=== PATIENT | female | born 1985 | race Caucasian/White ===

== ENCOUNTER 2022-05-20 08:26 | Inpatient (IN) | payer OTHER, SELFPAY ==
[2022-05-20] VITALS (19 sets, daily range): BP systolic 81–105; BP diastolic 32–70; PULSE 33–61; RESP 12–16; TEMP 34.8–36.2; O2SAT 98–100; BMI 20.3; BMI 22.8
--- NOTE | 2022-05-20 08:38 | ECG_ITS ---
Test Reason : od Blood Pressure : / mmHG Vent. Rate : 038 BPM Atrial Rate : 038 BPM P-R Int : 176 ms QRS Dur : 082 ms QT Int : 556 ms P-R-T Axes : 058 044 050 degrees QTc Int : 442 ms Marked sinus bradycardia Abnormal ECG No previous ECGs available Referred By: Kristine Bernard Electronically Signed By:JOSIE BLUM
--- NOTE | 2022-05-20 08:42 | ED_ITS ---
HPI - Overdose General Chief Complaint: Overdose Stated Complaint: ? OD ,PULSE 40 PER EMS Time Seen by Provider: 05/20/22 08:38 Source: patient and EMS Mode of arrival: EMS Limitations: no limitations History of Present Illness HPI Narrative: 36-year-old female came in by ambulance for evaluation of overdosed, patient take her prescribed medication of risperidone 0.5 mg tablet, clonidine 0.1 mg tablet, hydroxyzine 25 mg tablet, lamotrigine 25 mg tablet all the bottles are empty patient is guessing about 20 tablets of each patient talked to the medicine at 17:00 last night (over 15 hours ago), patient admitted she felt depressed and feeling sad for losing her fiance 5 months ago. Patient feel nauseous otherwise no chest pain, no abdominal pain. Patient also feels tired and lethargic. Patient found to be bradycardiac. Was placed on 3 L of oxygen by EMS. Related Data Allergies Allergy/AdvReac Type Severity Reaction Status Date / Time No Known Allergies Allergy Unverified 05/27/20 19:49 Review of Systems Review of Systems: All other systems are reviewed and are negative Constitutional: Reports as per HPI and Reports no additional constitutional complaints Eyes: Reports as per HPI and Reports no additional eye complaints Reports system reviewed and no additional complaints, except as documented Cardiovascular: Reports as per HPI and Reports no additional cardiovascular complaints Respiratory: Reports as per HPI and Reports no additional respiratory complaints Gastrointestinal: Reports as per HPI and Reports no additional gastrointestinal complaints Genitourinary: Reports no additional female genitourinary complaints Musculoskeletal: Reports no additional musculoskeletal complaints Skin/Breast: Reports system reviewed and no additional complaints, except as docu Psychiatric: Reports no additional psychiatric complaints Endocrine: Reports no additional endocrine complaints Hematologic/Lymphatic: Reports no additional hematologic/lymphatic complaints Allergic/Immunologic: Reports no additional allergic/immunologic complaints Reports system reviewed and no additional complaints, except as documented and Reports Abnormal speech present FORMERLY [facility], [facility]1983 Social History Social History Alcohol intake: never Patient Tobacco Use Status: Current everyday Tobacco user Smoked in Last 30 Days: Yes Use of substances other than those prescribed or required for medical reasons: No Advance Directives: Yes Advance Directives Information Provided: Yes Advance Directives on File: No Patient : No Physical Exam Vital Signs: Vital Signs: Last Vital Signs Temp 94.6 F L 05/20/22 13:42 Pulse 44 L 05/20/22 14:29 Resp 16 05/20/22 14:29 BP 95/57 L 05/20/22 14:29 Pulse Ox 99 05/20/22 14:29 O2 Del Method 05/20/22 14:29 BMI result Body Mass Index 20.3 Vital signs have been reviewed as appeared to be correct. Blood pressure normal. Heart rate normal. Respiration rate normal. Temperature normal. Oxygen saturation normal. Appearance: Alert. Oriented X3. No acute distress. Head: Normal external exam. Normocephalic. Atraumatic. No Brandt signs noted. No raccoon eyes noted Eyes: PERRLA. EOMI. Conjunctiva and sclera normal. Eyelids normal. ENT: TM's Normal. Pharynx normal. Uvula midline. Moist mucous membranes. No trismus noted. No drooling noted. No muffled voice noted. Neck: Normal inspection. Neck supple. FROM. No adenopathy. Thyroid Normal. No meningeal signs. No neck mass noted. CVS: Normal heart rate and rhythm. Heart sound normal. No murmurs noted. Pulses normal throughout. Respiratory: No respiratory distress. Painless inspiration. Breath sounds normal. No wheezes/rales/rhonchi noted. Chest nontender. No accessory muscle usage noted or decreased air movement noted. Abdomen: Soft and nontender. Bowel sounds normal in all 4 quadrants. No distention noted. No organomegaly noted. No visible injury noted. Back: No CVA tenderness. Full range of motion noted. Skin: Skin warm and dry. Normal skin color. Normal skin turgor. No rashes/lesions/lacerations noted. Extremities: No lower extremity edema. Extremities exhibit normal range of motion. Extremities nontender. Neuro: Oriented X 3. Cranial nerve exam: II-XII are grossly intact No motor deficit. No sensory deficit. Reflexes normal. Patient Orientation: Person, Place, Time and Situation Level of Consciousness: Awake, Appropriate and Alert Patient Behavior: Appropriate, Guarded, Cooperative and Anxious Mood Description: Constricted, Blunted and Apprehensive Affect Description: Constricted, Blunted and Apprehensive Patient Cognition Impaired: No Ability to Follow Directions: Excellent Speech Pattern: Clear, Appropriate and Spontaneous Speech Memory Description: Intact, Immediate Intact and Short Term Intact Hallucinations: None Delusions: Not Present Thought Process: Intact Thought Content: positive for Intact, positive for Logical, presents of Suicidal Ideation but denies Homicidal Ideation. Depressive Symptoms: Not present Judgement: poor Judgement and Insight: Poor Course Course Course Narrative: 36-year-old female came in after overdosed on multiple of her medication risperidone 0.5 mg tablets, clonidine 0.1 mg tablet, hydroxyzine 25 mg tablet, lamotrigine 25 mg tablet of unknown amount, patient presented more than 12 hours after the ingestion, patient found to be hypotensive and bradycardic, consulting with poison Control recommended supportive treatment and 48 hours monitoring, case discussed with Dr. Cohen will be accepted to ICU. Reevaluation(s) Reevaluation #1: Patient received 3 L of normal saline slight improvement of blood pressure, heart rate is improving, patient remained awake, alert, oriented. MDM - Overdose Lab Data Attestation: I reviewed the patient's lab results. Result diagrams: 05/20/22 09:10 05/20/22 12:16 Labs: Lab Results 05/20/22 05/20/22 05/20/22 Range/Units 09:10 09:10 09:10 WBC 11.4 H (4.8-10.8) X10*3/uL RBC 4.14 L (4.20-5.50) X10*6/uL Hgb 13.0 (12.0-16.0) g/dl Hct 39.1 (37.0-47.0) % MCV 94.4 (80.0-98.0) fL MCH 31.4 (27.0-33.0) pg MCHC 33.2 (31.0-35.0) g/dl RDW 12.2 (11.0-16.0) % Plt Count 234 (160-400) X10*3/uL MPV 11.4 (9.4-12.3) fL Immature Gran % (Auto) 0.4 (0.0-0.4) % Neut % (Auto) 80.7 H (45-73) % Lymph % (Auto) 12.2 L (20-40) % Clayton % (Auto) 5.6 (2-11) % Eos % (Auto) 0.6 (0-4) % Baso % (Auto) 0.5 (0-2) % Lymph # (Auto) 1.4 (1.2-4.9) X10*3/uL Clayton # (Auto) 0.6 (0.1-1.2) X10*3/uL Eos # (Auto) 0.1 (0.0-0.4) X10*3/uL Baso # (Auto) 0.1 (0.0-0.2) X10*3/uL Abs Immat Gran (auto) 0.05 H (0.00-0.03) X10*3/uL Absolute Neuts (auto) 9.2 H (2.0-8.3) x10*3/uL Absolute Nucleated RBC 0.000 (0.0-0.012) X10*3/uL Nucleated RBC % (auto) 0.0 (0.0-0.2) /100WBC Sodium 141 (135-145) mmol/L Potassium 4.3 (3.3-5.1) mmol/L Chloride 104 (96-108) mmol/L Carbon Dioxide 28 (22-29) mmol/L Anion Gap 13 (12-20) BUN 9 (9-16) mg/dL Creatinine 0.92 (0.5-1.4) mg/dL Estim Creat Clear Calc 68.3 Estimated GFR > 60 Random Glucose 136 H (60-115) mg/dL Calcium 9.7 (8.4-10.2) mg/dL Magnesium 2.2 (1.6-2.6) mg/dL Total Bilirubin 0.5 (0.0-1.0) mg/dL Direct Bilirubin 0.2 (0.0-0.5) mg/dL AST 19 (5-31) U/L ALT 21 (0-31) U/L Alkaline Phosphatase 44 (39-117) U/L Troponin I High Sens < 3.5 (<3.5-17.0) ng/L Total Protein 6.6 (6.5-8.0) g/dL Albumin 4.0 (3.5-5.0) g/dL Lipase 7 L (8-78) U/L Salicylates < 5.0 L (15-30) mg/dL Acetaminophen < 1 (<30) mcg/mL COVID-19 ([facility]) (Negative) COVID-19 Clin Com 05/20/22 05/20/2222 Range/Units 09:10 09:51 12:16 WBC (4.8-10.8) X10*3/uL RBC (4.20-5.50) X10*6/uL Hgb (12.0-16.0) g/dl Hct (37.0-47.0) % MCV (80.0-98.0) fL MCH (27.0-33.0) pg MCHC (31.0-35.0) g/dl RDW (11.0-16.0) % Plt Count (160-400) X10*3/uL MPV (9.4-12.3) fL Immature Gran % (Auto) (0.0-0.4) % Neut % (Auto) (45-73) % Lymph % (Auto) (20-40) % Clayton % (Auto) (2-11) % Eos % (Auto) (0-4) % Baso % (Auto) (0-2) % Lymph # (Auto) (1.2-4.9) X10*3/uL Clayton # (Auto) (0.1-1.2) X10*3/uL Eos # (Auto) (0.0-0.4) X10*3/uL Baso # (Auto) (0.0-0.2) X10*3/uL Abs Immat Gran (auto) (0.00-0.03) X10*3/uL Absolute Neuts (auto) (2.0-8.3) x10*3/uL Absolute Nucleated RBC (0.0-0.012) X10*3/uL Nucleated RBC % (auto) (0.0-0.2) /100WBC Sodium 143 (135-145) mmol/L Potassium 4.7 (3.3-5.1) mmol/L Chloride 111 H (96-108) mmol/L Carbon Dioxide 24 (22-29) mmol/L Anion Gap 13 (12-20) BUN 8 L (9-16) mg/dL Creatinine 0.77 (0.5-1.4) mg/dL Estim Creat Clear Calc 81.5 Estimated GFR > 60 Random Glucose 116 H (60-115) mg/dL Calcium 8.7 D 8.7 (8.4-10.2) mg/dL Magnesium (1.6-2.6) mg/dL Total Bilirubin (0.0-1.0) mg/dL Direct Bilirubin (0.0-0.5) mg/dL AST (5-31) U/L ALT (0-31) U/L Alkaline Phosphatase (39-117) U/L Troponin I High Sens (<3.5-17.0) ng/L Total Protein (6.5-8.0) g/dL Albumin (3.5-5.0) g/dL Lipase (8-78) U/L Salicylates (15-30) mg/dL Acetaminophen (<30) mcg/mL COVID-19 ([facility]A) Negative (Negative) COVID-19 Clin Com See Note ECG Data Attestation: I personally reviewed and interpreted this ECG as follows: Interpretation: Sinus bradycardia at 36 beats per minute, normal intervals, no ST-T changes. Critical Care Time Critical Care Time Critical Care Time: Yes Total Critical Care Time: 60 Attestation: I spent 60 minutes providing critical care service to the patient, this including time spent at the bedside to evaluate the patient, reassess the patient, monitoring vital signs, review labs, and radiographic studies, counseling the patient/family, discussing the case with consultants, disposition the patient.
[2022-05-20] MEDS: 0.9 % Sodium Chloride 1,000 ML 999 ML IV ×3 (09:13→12:46)
[2022-05-20 09:15] LABS: MANUAL DIFF FLAG NO
[2022-05-20 09:16] LABS: Basophils Absolute Auto 0.1 X10*3/uL (0.0-0.2); Basophils Percent Auto 0.5 % (0-2); Eosinophils Absolute Auto 0.1 X10*3/uL (0.0-0.4); Eosinophils Percent Auto 0.6 % (0-4); Hematocrit 39.1 % (37.0-47.0); Imm Gran Abs Auto 0.05 X10*3/uL (0.00-0.03); Imm Gran Pct Auto 0.4 % (0.0-0.4); Lymphocytes Absolute Auto 1.4 X10*3/uL (1.2-4.9); Lymphocytes Percent Auto 12.2 % (20-40); Mean Corpuscular HGB Conc 33.2 g/dl (31.0-35.0); Mean Corpuscular Hemoglobin 31.4 pg (27.0-33.0); Mean Corpuscular Volume 94.4 fL (80.0-98.0); Mean Platelet Volume 11.4 fL (9.4-12.3); Monocytes Absolute Auto 0.6 X10*3/uL (0.1-1.2); Monocytes Percent Auto 5.6 % (2-11); Neutrophils Absolute Auto 9.2 x10*3/uL (2.0-8.3); Neutrophils Percent Auto 80.7 % (45-73); Platelet Count 234 X10*3/uL (160-400); Red Blood Count 4.14 X10*6/uL (4.20-5.50); Red Cell Distribution Width 12.2 % (11.0-16.0); White Blood Count 11.4 X10*3/uL (4.8-10.8)
[2022-05-20 09:33] LABS: COVID-19 Test Negative (Negative); IDNOW Serial# 16C4AD1C
[2022-05-20 09:46] LABS: Troponin-I High Sensitivity < 3.5 ng/L (<3.5-17.0)
[2022-05-20 09:47] LABS: Alanine Aminotransferase 21 U/L (0-31); Alkaline Phosphatase 44 U/L (39-117); Anion Gap 13 (12-20); Aspartate Amino Transferase 19 U/L (5-31); Bilirubin Direct 0.2 mg/dL (0.0-0.5); Bilirubin Total 0.5 mg/dL (0.0-1.0); Blood Urea Nitrogen 9 mg/dL (9-16); Calcium 9.7 mg/dL (8.4-10.2); Carbon Dioxide 28 mmol/L (22-29); Chloride 104 mmol/L (96-108); Creatinine Clr Calc Pharmacy 68.3; Estimated Glomerular Filt Rate > 60; Glucose Random 136 mg/dL (60-115); Lipase 7 U/L (8-78); Magnesium 2.2 mg/dL (1.6-2.6); Potassium 4.3 mmol/L (3.3-5.1); Sodium 141 mmol/L (135-145); Total Protein 6.6 g/dL (6.5-8.0)
[2022-05-20 09:55] LABS: Acetaminophen LAB < 1 mcg/mL (<30); Salicylate < 5.0 mg/dL (15-30)
[2022-05-20 10:32] LABS: Calcium 8.7 mg/dL (8.4-10.2)
--- NOTE | 2022-05-20 11:44 | MHC.CARE ---
Please consult CARE Team when Pt is medically cleared for crisis assessment.
--- NOTE | 2022-05-20 12:00 | ECG_ITS ---
Test Reason : repeat Blood Pressure : / mmHG Vent. Rate : 036 BPM Atrial Rate : 036 BPM P-R Int : 178 ms QRS Dur : 082 ms QT Int : 608 ms P-R-T Axes : 055 035 057 degrees QTc Int : 470 ms Marked sinus bradycardia Low voltage QRS Abnormal ECG When compared with ECG of 20-MAY-2022 08:46, No significant change was found Referred By: Kristine Bernard Electronically Signed By:JOSIE BLUM
[2022-05-20 12:45] LABS: Anion Gap 13 (12-20); Blood Urea Nitrogen 8 mg/dL (9-16); Calcium 8.7 mg/dL (8.4-10.2); Carbon Dioxide 24 mmol/L (22-29); Chloride 111 mmol/L (96-108); Creatinine Clr Calc Pharmacy 81.5; Estimated Glomerular Filt Rate > 60; Glucose Random 116 mg/dL (60-115); Potassium 4.7 mmol/L (3.3-5.1); Sodium 143 mmol/L (135-145)
--- NOTE | 2022-05-20 13:59 | P.HPCC_ITS ---
History of Present Illness Date of Service: 05/20/22 Chief Complaint: Suicide attempt 36 year old lady presented via ambulance complaining of attempted suicide attempt by an overdose of her prescription medications including including, lamotrigine, and risperidone approximately 18 hours before being evaluated at [facility] emergency room. On ER evaluation alert and oriented, mild hypotension despite initial IV fluid support, S symptomatic bradycardia, normal EKG intervals. Patient admitted to intensive care unit for close monitoring. Review of Systems Constitutional: Constitutional: Denies daytime sleepiness, Denies excessive sweating, Denies fatigue, Denies fever(s), Denies lethargy, Denies malaise, Denies night sweats, Denies snoring and Denies weight loss Eyes: Eyes: Denies blurry vision and Denies itchy eyes ENT: Denies nasal congestion, Denies post nasal drip, Denies sinus pain, Denies sinus pressure and Denies other ( Thrush) Cardiovascular: Cardiovascular: Denies chest pain, Denies pedal edema, Denies dyspnea, Denies orthopnea and Denies paroxysmal nocturnal dyspnea Respiratory: Respiratory: Denies cough, Denies hemoptysis, Denies excessive phlegm production, Denies dyspnea, Denies snoring and Denies wheezing Gastrointestinal: Gastrointestinal: Denies abdominal pain and Denies heartburn Musculoskeletal: Musculoskeletal: Denies myalgias, Denies arthralgias and Denies joint swelling Integumentary/Breasts: Skin/Breast: Denies rash Neurologic: Denies memory loss and Denies seizure-like activity Psychiatric: Psychiatric: Denies abnormal sleep pattern, Denies anxiety and Denies memory loss Endocrine: Endocrine: Denies excessive sweating, Denies fatigue and Denies heat intolerance Hematologic/Lymphatic: Hematologic/Lymphatic: Denies easy bruising Allergic/Immunologic: Allergic/Immunologic: Denies itchy eyes, Denies seasonal rhinorrhea and Denies wheezing PMFSH Social History Social History Household Members: None Housing: Apartment Do you presently have visiting nurse or other home services: No Alcohol intake: never Patient Tobacco Use Status: Current everyday Tobacco user Tobacco use type: Cigarette Smoked in Last 30 Days: Yes Use of substances other than those prescribed or required for medical reasons: No Have you been hit, kicked, punched, or otherwise hurt by someone within the past year? If so, by whom?: No Do you feel safe in your current relationship?: No Current Relationship Is there a partner from a previous relationship who is making you feel unsafe now?: No Are you made to feel afraid or neglected: No Advance Directives: No Advance Directives Information Provided: Yes Advance Directives on File: No Healthcare Proxy: No Guardian: No Do you have thoughts of harming others: Vague Do you have a plan to hurt others: Vague Recently lost weight without trying: No Nutrition Risks: No Nutritional Risk Patient : No : No Poor oral hygiene: No Meds Allergies Allergy/AdvReac Type Severity Reaction Status Date / Time No Known Allergies Allergy Unverified 05/27/20 19:49 Active Medications: Current Medications Enoxaparin Sodium (Enoxaparin Sodium 40 Mg/0.4 Ml Syringe) 40 mg SUBCUT Q24H [facility] Lactated Ringer's (Lr) 1,000 mls @ 100 mls/hr IVCONT .Q10H [facility] Home Medications Medication Instructions Recorded Confirmed Last Taken Type clonidine HCl 0.1 mg tablet 0.1 mg PO DAILY 05/20/22 05/20/22 05/20/22 History lamotrigine 25 mg tablet 25 mg PO DAILY 05/20/22 05/20/22 05/20/22 History risperidone 0.5 mg tablet 0.5 mg PO DAILY 05/20/22 05/20/22 05/20/22 History Physical Exam Vital Signs: Vital Signs: Last Vital Signs Temp 94.6 F L 05/20/22 13:42 Pulse 35 L 05/20/22 13:42 Resp 14 05/20/22 13:42 BP 95/56 L 05/20/22 13:42 Pulse Ox 100 05/20/22 13:42 O2 Del Method 05/20/22 13:42 BMI result Body Mass Index 20.3 Const: General: no acute distress and alert Nutritional Appearance: not obese Orientation/consciousness: Other orientation findings ( oriented) HEENT: Head: Yes atraumatic Mouth: no other ( thrush) Throat: No postnasal drainage Eyes: General: appearance normal, both eyes and all related structures Sclerae: sclerae normal EOM: EOMs intact bilaterally Neck: Neck: Yes supple Lymphatic: no lymphadenopathy noted Resp: Effort & Inspection: normal respiratory effort and no use of accessory muscles Auscultation: clear to auscultation bilaterally Cardio: Rate: bradycardic Rhythm: regular rhythm Heart sounds: no gallops, no murmurs and no rubs GI: Palpation (GI): Soft to palpation and Other GI palpation findings present ( nontender) Skin: General skin exam: other ( warm) Rashes: no rashes Extrem: General: No clubbing, No cyanosis and No edema Results Labs CBC and Chem 7: 05/21/22 05:18 05/21/22 05:18 Labs: Laboratory Results - last 24 hr 05/20/22 05/20/22 05/20/22 09:10 09:10 09:10 MCV 94.4 MCH 31.4 MCHC 33.2 RDW 12.2 Plt Count 234 MPV 11.4 Immature Gran % (Auto) 0.4 Neut % (Auto) 80.7 H Lymph % (Auto) 12.2 L Noble % (Auto) 5.6 Eos % (Auto) 0.6 Baso % (Auto) 0.5 Lymph # (Auto) 1.4 Noble # (Auto) 0.6 Eos # (Auto) 0.1 Baso # (Auto) 0.1 Abs Immat Gran (auto) 0.05 H Absolute Neuts (auto) 9.2 H Absolute Nucleated RBC 0.000 Nucleated RBC % (auto) 0.0 Anion Gap 13 Estim Creat Clear Calc 68.3 Estimated GFR > 60 Random Glucose 136 H Calcium 9.7 Magnesium 2.2 Total Bilirubin 0.5 Direct Bilirubin 0.2 AST 19 ALT 21 Alkaline Phosphatase 44 Total Protein 6.6 Albumin 4.0 Lipase 7 L Salicylates < 5.0 L Acetaminophen < 1 COVID-19 ([facility]) Negative COVID-19 Clin Com See Note 05/20/22 05/20/22 09:51 12:16 MCV MCH MCHC RDW Plt Count MPV Immature Gran % (Auto) Neut % (Auto) Lymph % (Auto) Noble % (Auto) Eos % (Auto) Baso % (Auto) Lymph # (Auto) Noble # (Auto) Eos # (Auto) Baso # (Auto) Abs Immat Gran (auto) Absolute Neuts (auto) Absolute Nucleated RBC Nucleated RBC % (auto) Anion Gap 13 Estim Creat Clear Calc 81.5 Estimated GFR > 60 Random Glucose 116 H Calcium 8.7 D 8.7 Magnesium Total Bilirubin Direct Bilirubin AST ALT Alkaline Phosphatase Total Protein Albumin Lipase Salicylates Acetaminophen COVID-19 ([facility]) COVID-19 Clin Com Assessment and Plan (1) Overdose: Status: Acute (2) Bradycardia: Status: Acute Plan Assessment: 36-year-old lady admitted with hypertension and bradycardia secondary to intentional overdose with clonidine, Lamotrigine, and risperidone. Plan: Neuro: Mentation is normal Cardiac: Hypotension and bradycardia are secondary to intentional overdose. Continue supportive measures. Continue to monitor EKG intervals. Pulmonary: No acute issues. Renal: No acute issues. Endo: No acute issues. GI: No acute issues. ID: No acute issues Heme/Onc: No acute issues. Psych: Intentional overdose, psychiatry evaluation requested. Continue on one-to-one supervision. Miscellaneous: No acute issues. Prophylaxis: Lovenox Diet: Regular
[2022-05-20] MEDS: Enoxaparin Sodium 40 MG/0.4 ML SYRINGE SUBCUT (14:23)
[2022-05-20] MEDS: Lactated Ringers 1,000 ML 100 ML IVCONT ×2 (14:24→23:50)
--- NOTE | 2022-05-20 14:38 | PC.NURSE ---
poison control called to check in on patient. they recommend adding alcohol level for patients lab work. patient waiting to be admitted to ICU.
[2022-05-20 14:56] LABS: Ethanol < 10 mg/dL
--- NOTE | 2022-05-20 15:04 | PHA.MEDREC ---
Pharmacy Consult ? Medication Reconciliation Pharmacy has completed the medication reconciliation.
[2022-05-20 16:21] LABS: Appearance Urine Cloudy; Color Urine Yellow; Glucose Urine UA Negative (Negative); Leukocyte Esterase Urine Trace (Negative); Nitrite Urine Negative (Negative); Urine Blood Negative (Negative); Urine Ketones Negative (Negative); Urine Protein Negative (Neg-Trace)
[2022-05-20 16:22] LABS: UPreg QC Valid YES; Urine Pregnancy NEGATIVE (NEGATIVE)
[2022-05-20 16:26] LABS: Bacteria Urine 4+ (None Seen); Hyaline Casts Urine 0-2 /LPF (0-2); RBC Urine 0-2 /HPF (0-2); Squamous Epithelial Cell Urine 0-2 /HPF (0-2); WBC Urine 0-5 /HPF (0-5)
[2022-05-20 16:27] LABS: Amphetamine Screen Urine Not Detected (Not Detect); Barbiturates, Urine Not Detected (Not Detect); Benzodiazepines Screen Urine Not Detected (Not Detect); Cannabinoid Screen Urine Not Detected (Not Detect); Cocaine Screen Urine Not Detected (Not Detect); Fentanyl, urine POSITIVE (Not Detect); Opiate Screen Urine Not Detected (Not Detect); Phencyclidine Screen Urine Not Detected (Not Detect)
--- NOTE | 2022-05-20 18:21 | ECG_ITS ---
Test Reason : QTC CHECK PER POISON CONTROL Blood Pressure : / mmHG Vent. Rate : 036 BPM Atrial Rate : 036 BPM P-R Int : 168 ms QRS Dur : 082 ms QT Int : 560 ms P-R-T Axes : 050 022 062 degrees QTc Int : 433 ms Marked sinus bradycardia Low voltage QRS Nonspecific T wave abnormality Abnormal ECG When compared with ECG of 20-MAY-2022 11:54, No significant change was found Referred By: Guilherme Cohen Electronically Signed By:JOSIE BLUM
--- NOTE | 2022-05-20 18:37 | MHC.CARE ---
Care Team met with pt and pt is not medically cleared. Please consult care team for crisis assessment. Care Team is recommending Pt remain on Section 12 until assessment is complete. Case consult with YIFAN Callaway.
--- NOTE | 2022-05-20 18:56 | ECG_ITS ---
Test Reason : Poison control Blood Pressure : / mmHG Vent. Rate : 044 BPM Atrial Rate : 044 BPM P-R Int : 164 ms QRS Dur : 084 ms QT Int : 556 ms P-R-T Axes : 048 017 051 degrees QTc Int : 475 ms Marked sinus bradycardia with sinus arrhythmia Low voltage QRS Abnormal ECG When compared with ECG of 20-MAY-2022 18:23, No significant change was found Referred By: Yoko Newton Electronically Signed By:JOSIE BLUM
[2022-05-21] VITALS (19 sets, daily range): BP systolic 91–108; BP diastolic 51–76; PULSE 35–63; RESP 13–21; TEMP 36.5–36.9; O2SAT 97–100; BMI 24.7
--- NOTE | 2022-05-21 02:56 | ECG_ITS ---
Test Reason : Poison control Blood Pressure : / mmHG Vent. Rate : 037 BPM Atrial Rate : 037 BPM P-R Int : 154 ms QRS Dur : 086 ms QT Int : 516 ms P-R-T Axes : 052 005 040 degrees QTc Int : 405 ms Marked sinus bradycardia Low voltage QRS Nonspecific T wave abnormality Abnormal ECG When compared with ECG of 20-MAY-2022 23:13, No significant change was found Referred By: Yoko Newton Electronically Signed By:JOSIE BLUM
[2022-05-21 06:12] LABS: MANUAL DIFF FLAG NO
[2022-05-21 06:25] LABS: Basophils Percent Auto 0.6 % (0-2); Eosinophils Absolute Auto 0.1 X10*3/uL (0.0-0.4); Eosinophils Percent Auto 0.7 % (0-4); Hematocrit 34.2 % (37.0-47.0); Hemoglobin 11.4 g/dl (12.0-16.0); Imm Gran Abs Auto 0.03 X10*3/uL (0.00-0.03); Imm Gran Pct Auto 0.4 % (0.0-0.4); Lymphocytes Absolute Auto 1.9 X10*3/uL (1.2-4.9); Lymphocytes Percent Auto 27.8 % (20-40); Mean Corpuscular HGB Conc 33.3 g/dl (31.0-35.0); Mean Corpuscular Hemoglobin 32.1 pg (27.0-33.0); Mean Corpuscular Volume 96.3 fL (80.0-98.0); Mean Platelet Volume 12.8 fL (9.4-12.3); Monocytes Absolute Auto 0.5 X10*3/uL (0.1-1.2); Monocytes Percent Auto 6.7 % (2-11); Neutrophils Absolute Auto 4.5 x10*3/uL (2.0-8.3); Neutrophils Percent Auto 63.8 % (45-73); Platelet Count 218 X10*3/uL (160-400); Red Blood Count 3.55 X10*6/uL (4.20-5.50); Red Cell Distribution Width 12.3 % (11.0-16.0)
[2022-05-21 06:38] LABS: Alanine Aminotransferase 19 U/L (0-31); Albumin Level 3.6 g/dL (3.5-5.0); Alkaline Phosphatase 39 U/L (39-117); Anion Gap 12 (12-20); Aspartate Amino Transferase 15 U/L (5-31); Bilirubin Total 0.4 mg/dL (0.0-1.0); Blood Urea Nitrogen 9 mg/dL (9-16); Calcium 9.1 mg/dL (8.4-10.2); Carbon Dioxide 24 mmol/L (22-29); Chloride 109 mmol/L (96-108); Creatinine Clr Calc Pharmacy 76.9; Estimated Glomerular Filt Rate > 60; Glucose Random 102 mg/dL (60-115); Phosphorus 4.1 mg/dL (2.7-4.5); Potassium 4.3 mmol/L (3.3-5.1); Sodium 141 mmol/L (135-145); Total Protein 5.7 g/dL (6.5-8.0)
[2022-05-21] MEDS: Acetaminophen 325 MG TABLET 650 MG PO (08:31)
[2022-05-21] MEDS: Lactated Ringers 1,000 ML 100 ML IVCONT ×2 (08:32→18:26)
--- NOTE | 2022-05-21 09:43 | PM.CCPN ---
Subjective Subjective Date of Service: 05/21/22 Interval History: 36 year old lady presented via ambulance complaining of attempted suicide attempt by an overdose of her prescription medications including including, lamotrigine, and risperidone approximately 18 hours before being evaluated at the emergency room. On ER evaluation alert and oriented, mild hypotension despite initial IV fluid support, S symptomatic bradycardia, normal EKG intervals. Patient admitted to intensive care unit for close monitoring. No events overnight. Blood pressure improved, pulse remained around 40 beats per minute. Critical Care Time (minutes): 0 Physical Exam Vital Signs: Vital Signs: Last Vital Signs Temp 97.7 F 05/21/22 08:53 Pulse 40 L 05/21/22 09:00 Resp 16 05/21/22 09:00 BP 105/54 L 05/21/22 09:00 Pulse Ox 99 05/21/22 09:00 O2 Del Method 05/21/22 09:00 BMI result Body Mass Index 24.7 Const: General: no acute distress, alert and awake Eyes: Sclerae: sclerae normal EOM: EOMs intact bilaterally Neck: Neck: Yes no lymphadenopathy, Yes trachea midline and Yes supple Resp: Effort & Inspection: normal respiratory effort and no respiratory distress Auscultation: clear to auscultation bilaterally Cardio: Rate: bradycardic Rhythm: regular rhythm Heart sounds: no gallops, no murmurs and no rubs GI: Palpation (GI): Soft to palpation and Other GI palpation findings present ( Nontender) Auscultation: normal bowel sounds Extrem: General: Yes no pedal edema, No clubbing and No cyanosis Objective Data Labs CBC & Chem 7: 05/21/22 05:18 05/21/22 05:18 Labs: Laboratory Results - last 24 hr 05/20/22 05/20/22 05/20/22 09:10 09:10 09:51 WBC RBC Hgb Hct MCV MCH MCHC RDW Plt Count MPV Immature Gran % (Auto) Neut % (Auto) Lymph % (Auto) [place] % (Auto) Eos % (Auto) Baso % (Auto) Lymph # (Auto) [place] # (Auto) Eos # (Auto) Baso # (Auto) Abs Immat Gran (auto) Absolute Neuts (auto) Absolute Nucleated RBC Nucleated RBC % (auto) Sodium 141 Potassium 4.3 Chloride 104 Carbon Dioxide 28 Anion Gap 13 BUN 9 Creatinine 0.92 Estim Creat Clear Calc 68.3 Estimated GFR > 60 Random Glucose 136 H Calcium 9.7 8.7 D Phosphorus Magnesium 2.2 Total Bilirubin 0.5 Direct Bilirubin 0.2 AST 19 ALT 21 Alkaline Phosphatase 44 Troponin I High Sens < 3.5 Total Protein 6.6 Albumin 4.0 Lipase 7 L Urine Color Urine Appearance Urine pH Ur Specific [place] Urine Protein Urine Glucose (UA) Urine Ketones Urine Blood Urine Nitrite Ur Leukocyte Esterase Urine RBC Urine WBC Ur Squamous Epith Cells Urine Bacteria Hyaline Casts Urine Test Salicylates < 5.0 L Urine Opiates Screen Urine Fentanyl Screen Acetaminophen < 1 Ur Barbiturates Screen Ur Phencyclidine Scrn Ur Amphetamines Screen U Benzodiazepines Scrn Urine Cocaine Screen U Marijuana (THC) Screen Ethyl Alcohol 05/20/22 05/20/22 05/20/22 12:16 15:59 15:59 WBC RBC Hgb Hct MCV MCH MCHC RDW Plt Count MPV Immature Gran % (Auto) Neut % (Auto) Lymph % (Auto) [place] % (Auto) Eos % (Auto) Baso % (Auto) Lymph # (Auto) [place] # (Auto) Eos # (Auto) Baso # (Auto) Abs Immat Gran (auto) Absolute Neuts (auto) Absolute Nucleated RBC Nucleated RBC % (auto) Sodium 143 Potassium 4.7 Chloride 111 H Carbon Dioxide 24 Anion Gap 13 BUN 8 L Creatinine 0.77 Estim Creat Clear Calc 81.5 Estimated GFR > 60 Random Glucose 116 H Calcium 8.7 Phosphorus Magnesium Total Bilirubin Direct Bilirubin AST ALT Alkaline Phosphatase Troponin I High Sens Total Protein Albumin Lipase Urine Color Yellow Urine Appearance Cloudy Urine pH 6.0 Ur Specific [place] 1.010 Urine Protein Negative Urine Glucose (UA) Negative Urine Ketones Negative Urine Blood Negative Urine Nitrite Negative Ur Leukocyte Esterase Trace H Urine RBC 0-2 Urine WBC 0-5 Ur Squamous Epith Cells 0-2 Urine Bacteria 4+ Hyaline Casts 0-2 Urine Test Salicylates Urine Opiates Screen Not Detected Urine Fentanyl Screen POSITIVE H Acetaminophen Ur Barbiturates Screen Not Detected Ur Phencyclidine Scrn Not Detected Ur Amphetamines Screen Not Detected U Benzodiazepines Scrn Not Detected Urine Cocaine Screen Not Detected U Marijuana (THC) Screen Not Detected Ethyl Alcohol < 10 05/20/22 05/21/22 05/21/22 15:59 05:18 05:18 WBC 7.0 RBC 3.55 L Hgb 11.4 L Hct 34.2 L MCV 96.3 MCH 32.1 MCHC 33.3 RDW 12.3 Plt Count 218 MPV 12.8 H Immature Gran % (Auto) 0.4 Neut % (Auto) 63.8 Lymph % (Auto) 27.8 [place] % (Auto) 6.7 Eos % (Auto) 0.7 Baso % (Auto) 0.6 Lymph # (Auto) 1.9 [place] # (Auto) 0.5 Eos # (Auto) 0.1 Baso # (Auto) 0.0 Abs Immat Gran (auto) 0.03 Absolute Neuts (auto) 4.5 Absolute Nucleated RBC 0.000 Nucleated RBC % (auto) 0.0 Sodium 141 Potassium 4.3 Chloride 109 H Carbon Dioxide 24 Anion Gap 12 BUN 9 Creatinine 0.82 Estim Creat Clear Calc 76.9 Estimated GFR > 60 Random Glucose 102 Calcium 9.1 Phosphorus 4.1 Magnesium 2.0 Total Bilirubin 0.4 Direct Bilirubin AST 15 ALT 19 Alkaline Phosphatase 39 Troponin I High Sens Total Protein 5.7 L Albumin 3.6 Lipase Urine Color Urine Appearance Urine pH Ur Specific [place] Urine Protein Urine Glucose (UA) Urine Ketones Urine Blood Urine Nitrite Ur Leukocyte Esterase Urine RBC Urine WBC Ur Squamous Epith Cells Urine Bacteria Hyaline Casts Urine Test NEGATIVE Salicylates Urine Opiates Screen Urine Fentanyl Screen Acetaminophen Ur Barbiturates Screen Ur Phencyclidine Scrn Ur Amphetamines Screen U Benzodiazepines Scrn Urine Cocaine Screen U Marijuana (THC) Screen Ethyl Alcohol Progress Note: A&P Assessment and plan (1) Overdose: Status: Acute (2) Bradycardia: Status: Acute Plan Assessment: 36-year-old lady admitted with hypertension and bradycardia secondary to intentional overdose with clonidine, Lamotrigine, and risperidone. Plan: Neuro: Mentation is normal Cardiac: Hypotension and bradycardia are secondary to intentional overdose, improving. Continue supportive measures. Continue to monitor EKG intervals. Pulmonary: No acute issues. Renal: No acute issues. Endo: No acute issues. GI: No acute issues. ID: No acute issues Heme/Onc: No acute issues. Psych: Intentional overdose, psychiatry service care appreciated. Now under section 12. Continue on one-to-one supervision. Miscellaneous: No acute issues. Prophylaxis: Lovenox Diet: Regular Quality Stroke Does the patient have a stroke diagnosis?: No VTE Prior VTE?: No VTE Risk Level:: Medical - low VTE Device Contraindication: Treatment Not Indicated VTE Drug Contraindication: Treatment Not Indicated
--- NOTE | 2022-05-21 11:04 | MHC.CARE ---
Pt is a 36 year old Vincentian speaking? cisgender female who [place] [facility] [place] for evaluation of an overdose on prescribed medication of risperidone 0.5 mg tablet, clonidine 0.1 mg tablet, hydroxyzine 25 mg tablet, lamotrigine 25 mg tablet. Pt stated she feels depressed, sad, and wanting to . Pt reported her fiance approximately 5 months ago. She lives alone and feels isolated as she has been having family issues. Pt reported having financial difficulties. 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 Pt stated she lives in [facility] but was at the [facility]. Pt reported she reached out to [place] for mental health services but they mentioned to her that she does not qualify as she is not active for the past 6 years. Pt stated she will retire in the next 4 months. Pt reported having shared custody of her dtr. She has her dtr to Sunday. She reported her dtr did not witness the incident as the incident occured at the [facility]. She reported noticing everyone having a good time and good relationships with their families which made her feel worse. She reported telling her boss at the [facility] [employer] that she does not feel well and asking to go to the dorm room, she then went to the dorm room and took all the medications. Pt reported her boss noticed that she did not appear the next day and decided to check on her which is when he saw her hysterically crying, pacing side to side, and having a panic attack. Pt reported her boss called for an ambulance and she was transported [place] [facility] PT requested outpatient mental health services and medication review. Pt denied SI/HI/AVH. Pt is minimizing of the events that occurred regarding her? intentional overdose.? Please consult the care team when Pt is medically cleared for crisis assessment. CARE Team is recommending Pt remain on Section 12 until assessment is complete. Case consult with YIFAN Callaway
--- NOTE | 2022-05-21 14:11 | MHC.CM.PN ---
Pt is presently in ICU after an intentional OD d/t depression. Pt is on a section 12 hold and will be evaluated for INPT psych placement once medically cleared. CM to defer d/c planning until she is seen by psych. Per review of EMR, pt resides alone: has one child who she has joint custody of: pt is : stationed at [employer] but resides in [place]. Recent grief/loss issues compounding her depression. No d/c needs are anticipated however, CM to follow should she require anything.
[2022-05-21] MEDS: Enoxaparin Sodium 40 MG/0.4 ML SYRINGE SUBCUT (14:32)
--- NOTE | 2022-05-21 17:15 | PC.NURSE ---
AT START OF SHIFT PATIENT C/O A HEADACHE - 03/19. MD NOTIFIED AND ORDERED TYLENOL. ADMINISTERED WITH POSITIVE EFFECT. PATIENT STATES SHE NO LONGER WANTS TO KILL HERSELF MULTIPLE TIMES THROUGHOUT THE DAY AND FREQUENTLY ASKED THE PLAN TO BE ABLE TO GET HER OUT OF HERE. UPDATED AND EDUCATED ON PLAN OF CARE THROUGHOUT THE DAY. PATIENT ABLE TO VOID IN COMMODE, ATE MEALS WITH EASE AND OOB TO RECLINER WITH ASSSITANCE. 1:1 SITTER REMAINS BEDSIDE FOR SAFETY.
--- NOTE | 2022-05-21 19:02 | ECG_ITS ---
Test Reason : check qtc Blood Pressure : / mmHG Vent. Rate : 048 BPM Atrial Rate : 048 BPM P-R Int : 152 ms QRS Dur : 086 ms QT Int : 482 ms P-R-T Axes : 050 016 018 degrees QTc Int : 430 ms Sinus bradycardia Nonspecific T wave abnormality Abnormal ECG When compared with ECG of 21-MAY-2022 06:12, Heart rate has increased Referred By: Yoko Newton Electronically Signed By:JOSIE BLUM
[2022-05-22] VITALS (7 sets, daily range): BP systolic 95–120; BP diastolic 59–70; PULSE 56–71; RESP 15–21; TEMP 36.7–37.1; O2SAT 97–100
--- NOTE | 2022-05-22 01:00 | ECG_ITS ---
Test Reason : check qtc Blood Pressure : / mmHG Vent. Rate : 055 BPM Atrial Rate : 055 BPM P-R Int : 160 ms QRS Dur : 084 ms QT Int : 280 ms P-R-T Axes : 052 024 031 degrees QTc Int : 267 ms Sinus bradycardia Low voltage QRS Nonspecific T wave abnormality Abnormal ECG When compared with ECG of 21-MAY-2022 19:09, QT has shortened Heart rate has increased Referred By: Yoko Newton Electronically Signed By:JOSIE BLUM
[2022-05-22] MEDS: Lactated Ringers 1,000 ML 100 ML IVCONT (02:56)
[2022-05-22] MEDS: Acetaminophen 325 MG TABLET 650 MG PO ×3 (02:56→23:57)
--- NOTE | 2022-05-22 07:00 | ECG_ITS ---
Test Reason : cp Blood Pressure : / mmHG Vent. Rate : 051 BPM Atrial Rate : 051 BPM P-R Int : 166 ms QRS Dur : 086 ms QT Int : 458 ms P-R-T Axes : 041 026 047 degrees QTc Int : 422 ms Sinus bradycardia with sinus arrhythmia Low voltage QRS Borderline ECG When compared with ECG of 22-MAY-2022 01:00, QT has lengthened Referred By: Yoko Newton Electronically Signed By:JOSIE BLUM
--- NOTE | 2022-05-22 10:46 | MHC.CM.PN ---
Addendum entered by Johanna Medina 05/22/22 12:39: PATIENT MEDICALLY CLEARED. CARE TEAM AWARE. PATIENT NOW HAS FORMS NEEDED TO REQUEST HER MEDICAL RECORDS. CASE MANAGEMENT FOLLOWING Original Note: PATIENT AWARE THAT SHE CAN BE PROVIDED A CONFIDENTIAL [id number] NOTE AT DISCHARGE. SHE IS ALSO AWARE THAT HER INSURANCE IS PRIMARY. PATIENT VERBALIZES UNDERSTANDING PLAN OF CARE, INCLUDING A TRANSFER TO ANOTHER UNIT ONCE A BED BECOMES VAILABLE. CARE TEAM NOTIFIED OF MOMENTS OF WANTING TO LEAVE. ONCE MEDICALLY STABLE, PATIENT WILL BE RE-EVALUATED PATIENT AWARE AND IN AGREEMENT
--- NOTE | 2022-05-22 13:52 | P.PNIM_ITS ---
Subjective Subjective Date of Service: 05/22/22 Interval History: Being followed for suicide attempt, patient awake alert this time offers no acute complaints of lightheadedness dizziness, no chest discomfort no shortness of breath, no other acute issues overnight, monitor showed heart rate in 50-60 range and systems blood pressure above 100 Review of Systems Review of Systems: Yes all other systems are reviewed and are negative Physical Exam Vital Signs: Vital Signs: Last Vital Signs Temp 98.7 F 05/22/22 12:00 Pulse 59 05/22/22 12:00 Resp 21 H 05/22/22 12:00 BP 106/62 05/22/22 08:00 Pulse Ox 98 05/22/22 12:00 O2 Del Method 05/22/22 12:00 BMI result Body Mass Index 24.7 Const: Other: General awake alert x3, no acute distress. Anicteric sclera Neck no JVD. CVS regular rate rhythm, Respiratory lungs clear to auscultation, no respiratory distress, no wheeze, no rhonchi. Gastrointestinal abdomen soft, nontender, bowel sounds audible, no guarding , no rigidity. Extremities no edema. Neuro nonfocal Skin no rash Objective Data Active Medications Acetaminophen (Acetaminophen 325 Mg Tablet) 650 mg PO Q6H PRN PRN Reason: Pain, Mild (Pain Scale 1-3) Last Admin: 05/22/22 08:43 Dose: 650 mg Documented By: JHONNY Enoxaparin Sodium (Enoxaparin Sodium 40 Mg/0.4 Ml Syringe) 40 mg SUBCUT Q24H [facility] Last Admin: 05/21/22 14:32 Dose: 40 mg Documented By: DAMIEN Labs CBC & Chem 7: 05/21/22 05:18 05/21/22 05:18 Microbiology Microbiology Results: Microbiology 05/20/22 15:55 Urine Culture - Final Urine clean catch - Clean Catch Midstream Escherichia coli Assessment and Plan (1) Bradycardia: Status: Acute (2) Overdose: Status: Acute Plan 36 year old female presented to [facility] after suicide attempt by an overdose of her prescription medications including lamotrigine, clonidine and risperidone patient noted to have hypotension and bradycardia therefore admitted to ICU for close monitoring patient transferred to [facility] since her blood pressure and bradycardia improved patient seen by care team and now under Section 12 with one-to-one sitter Intentional drug overdose Patient under section 12 patient is medically cleared, care team following patient Continue to hold home medication lamotrigine, risperidone and clonidine Hypotension/bradycardia resolved continue close clinical follow-up DC IV fluids Disposition as per care Code status full code Need inpatient stay since care team arranging for safe discharge Quality Stroke Does the patient have a stroke diagnosis?: No VTE Prior VTE?: No VTE Risk Level:: Medical - low VTE Device Contraindication: Treatment Not Indicated VTE Drug Contraindication: Treatment Not Indicated
[2022-05-22] MEDS: Enoxaparin Sodium 40 MG/0.4 ML SYRINGE SUBCUT (15:51)
--- NOTE | 2022-05-22 16:45 | MHC.CARE ---
Patient evaluated by the CARE Team to need an inpatient psychiatric admission, is pre-accepted for tomorrow. Patient is aware of this plan, provider updated.
--- NOTE | 2022-05-22 17:38 | PC.NURSE ---
1645-report called to NUNO dorado [facility]. 1715-pt transported to [facility]. pt belongings with staff upon transfer. Pt transferred in wheelchair. VSS.
--- NOTE | 2022-05-22 18:14 | PC.NURSE ---
Patient appears overall well. Denies dizziness n/v. Patient eating drinking no issues. Aware of plan to go inpatient tomorrow. vital signs are stable skin PWD.
[2022-05-22] MEDS: Melatonin 3 MG TABLET 6 MG PO (23:57)
[2022-05-23 03:37] VITALS: BP 101/68; PULSE 51; RESP 16; TEMP 37; O2SAT 98
[2022-05-23 04:55] VITALS: BMI 23.1
[2022-05-23 07:27] VITALS: BP 111/59; PULSE 64; RESP 18; TEMP 36.8; O2SAT 98
--- NOTE | 2022-05-23 11:37 | P.DS_ITS ---
DS: Providers Provider Date of Service: 05/23/22 Date of admission: 05/20/22 13:56 Primary care physician: Unknown Physician Consults: 05/20/22 16:29 Consult to Care Team Routine Comment: Reason for consultation: SI ATTEMPT, TREAT ONCE MEDICALLY CLEARED Has provider been notified: Yes DS: Diagnosis Discharge Diagnosis (1) Bradycardia: Status: Acute (2) Overdose: Status: Acute DS: Summary Hospital Course Hospital Course: History of presenting illness Date of Service: 05/20/22 Chief Complaint: Suicide attempt 36 year old lady presented via ambulance complaining of attempted suicide attempt by an overdose of her prescription medications including including, lamotrigine, and risperidone approximately 18 hours before being evaluated at the emergency room.? On ER evaluation alert and oriented, mild hypotension despite initial IV fluid support, S symptomatic bradycardia, normal EKG intervals.? Patient admitted to intensive care unit for close monitoring. Hospital course 36 year old female presented to [facility] after suicide attempt by an overdose of her prescription medications including? lamotrigine, clonidine and risperidone patient noted to have hypotension and bradycardia therefore admitted to ICU for close monitoring patient transferred to [facility] since her blood pressure and bradycardia improved patient seen by care team placed on Section 12 with one-to-one sitter, an [facility] patient remained hemodynamically stable, all her home medications are held patient is being transferred to [facility] for continued monitoring and treatment for her depression and intentional drug overdose Tobacco use disorder patient has been placed on Nicorette gums counseling done Time Spent with Patient Time attestation: Total time spent providing and/or coordinating discharge services: Discharge coordination time: Greater than 30 minutes Quality: Safe Use of Opioids Does Pt have an Active Cancer Diagnosis on the Problem List?: No Quality: Stroke Does the patient have a stroke diagnosis?: No Physical Exam Vital Signs: Vital Signs: Last Vital Signs Temp 98.2 F 05/23/22 07:27 Pulse 64 05/23/22 07:27 Resp 18 05/23/22 07:27 BP 111/59 L 05/23/22 07:27 Pulse Ox 98 05/23/22 07:27 O2 Del Method 05/23/22 07:27 BMI result Body Mass Index 23.1 Const: Other: General awake aler t x3, no acute dis tress.? Anicteric sclera Neck no JVD . CVS? regular rat e rhythm, Respirat ory lungs clear to auscultation, no respiratory distre ss, no wheeze, no rhonchi. Gastroint estinal abdomen so ft, nontender, bow el sounds audible, no guarding , no rigidity. Extremit ies no edema. Neur o nonfocal Skin no rash Discharge Plan Discharge Disposition: Xfer Other Referrals: Physician,Unknown J [Primary Care Provider] - 1 Week Discharge Medications: Discontinued lamotrigine 25 mg tablet 25 mg PO DAILY risperidone 0.5 mg tablet 0.5 mg PO DAILY clonidine HCl 0.1 mg Tablet 0.1 mg PO DAILY Discharge Orders: Discharge Order (Routine); Ordered 05/23/22 Ordered By: Telma Tijerina Forms: Patient Portal Discharge page Care Plan Goals: Bradycardia and hypotension resolved, counseling done on smoking cessation to Health Concerns: Drug overdose/depression Plan of Treatment: Being transferred to Assessment: as per discharge summary
[2022-05-23 11:39] VITALS: BP 109/61; PULSE 70; RESP 20; TEMP 37.1; O2SAT 98
--- NOTE | 2022-05-23 12:54 | MHC.CM.PN ---
Patient is discharged from the medical floor. Patient will transfer to Psych floor.
[2022-05-23 15:36] VITALS: BP 101/66; PULSE 54; RESP 14; TEMP 36.9; O2SAT 98
[2022-05-23] MEDS: Enoxaparin Sodium 40 MG/0.4 ML SYRINGE SUBCUT (16:34)
[2022-05-23] MEDS: Nicotine Polacrilex 2 MG GUM BUCCAL (16:40)
[2022-05-23] MEDS: Acetaminophen 325 MG TABLET 650 MG PO (16:40)
[2022-05-23 17:21] LABS: COVID-19 Test Negative (Negative); IDNOW Serial# 16C4AD1C
[2022-05-24] MEDS: Nicotine Polacrilex 2 MG GUM BUCCAL (13:43)
== END 2022-05-23 19:22 | DRG 918 ==
LOC: HO.ED 09:30 → HO.EDOVER 14:33 → HO.ICU 15:04 → HO.IMC 05-22 15:31
PROVIDERS: Admitting Provider Internal Medicine Pulmonary Disease; Emergency Provider Emergency Medicine; Visit Provider Hospitalist
DX: T42.6X2A Poisoning by other antiepileptic and sedative-hypnotic drugs, intentional self-harm, initial encounter (principal); T43.592A Poisoning by other antipsychotics and neuroleptics, intentional self-harm, initial encounter; R00.1 Bradycardia, unspecified; I95.2 Hypotension due to drugs; Z20.822 Contact with and (suspected) exposure to COVID-19; Z87.891 Personal history of nicotine dependence; Z79.899 Other long term (current) drug therapy
CPT/HCPCS: 36415; 80048; 80053; 80076; 80143; 80179; 80307; 81001; 81025; 82077; 82310; 83690; 83735; 84100; 84484; 85025; 87086; 87088; 87186; 87635; 93005; 96360; 96361; 99285; J1650

== ENCOUNTER 2022-05-23 19:26 | Inpatient (IN) | payer OTHER, SELFPAY ==
[2022-05-23 19:43] VITALS: BP 109/66; PULSE 99; RESP 16; TEMP 36.8; O2SAT 99; BMI 20.9
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
[2022-05-24 07:40] VITALS: BP 124/68; PULSE 69; RESP 16; TEMP 36.3; O2SAT 98
[2022-05-24] MEDS: Nicotine Polacrilex 2 MG GUM BUCCAL (09:45)
--- NOTE | 2022-05-24 10:00 | ECG_ITS ---
Test Reason : s/p od Blood Pressure : / mmHG Vent. Rate : 060 BPM Atrial Rate : 060 BPM P-R Int : 128 ms QRS Dur : 080 ms QT Int : 396 ms P-R-T Axes : 044 021 017 degrees QTc Int : 396 ms Normal sinus rhythm Nonspecific T wave abnormality Abnormal ECG When compared with ECG of 22-MAY-2022 07:03, Heart rate has increased Referred By: Malachi Pizano Electronically Signed By:JOSIE BLUM
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
[2022-05-24 18:00] VITALS: BP 116/64; PULSE 70; RESP 18; TEMP 36.4; O2SAT 98
[2022-05-24] MEDS: traZODone HCL 100 MG TABLET PO (20:08)
[2022-05-25 07:00] VITALS: BMI 20.5
[2022-05-25 08:48] VITALS: BP 91/56; PULSE 53; RESP 16; TEMP 36.3; O2SAT 97
[2022-05-25] MEDS: Nicotine Polacrilex 2 MG GUM BUCCAL ×3 (09:32→17:15)
[2022-05-25 18:00] VITALS: BP 121/70; PULSE 61; RESP 16; TEMP 36.8; O2SAT 100
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
[2022-05-25] MEDS: traZODone HCL 100 MG TABLET PO (20:38)
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
[2022-05-26 08:30] VITALS: BP 100/60; PULSE 60; TEMP 36.5
[2022-05-26] MEDS: Nicotine Polacrilex 2 MG GUM BUCCAL (09:04)
== END 2022-05-26 12:00 | disposition home or self-care (01) | DRG 885 ==
PROVIDERS: Admitting Provider Hospitalist; Visit Provider Psychiatry & Neurology Psychiatry
DX: F33.1 Major depressive disorder, recurrent, moderate (principal); R45.851 Suicidal ideations; F32.81 Premenstrual dysphoric disorder; Z91.51 Personal history of suicidal behavior; Z87.891 Personal history of nicotine dependence
CPT/HCPCS: 93005